=== PATIENT | female | born 1940 | race Caucasian/White ===

== ENCOUNTER 2021-03-14 09:57 | Outpatient (CLI) | payer MEDICARE | END 2021-03-14 09:58 | disposition home or self-care (01) | LOC: CSHULT 09:57 | PROVIDERS: ATTEND Internal Medicine | DX: R01.1 Cardiac murmur, unspecified (principal); I51.7 Cardiomegaly; I35.8 Other nonrheumatic aortic valve disorders; I35.2 Nonrheumatic aortic (valve) stenosis with insufficiency; I34.0 Nonrheumatic mitral (valve) insufficiency | CPT/HCPCS: 93306 ==

== ENCOUNTER 2021-04-27 14:09 | Outpatient (CLI) | payer MEDICARE | END 2021-04-27 14:10 | disposition home or self-care (01) | LOC: CSHMAMMO 14:09 | PROVIDERS: ATTEND Internal Medicine | DX: Z12.31 Encounter for screening mammogram for malignant neoplasm of breast (principal); Z98.890 Other specified postprocedural states; Z85.3 Personal history of malignant neoplasm of breast | CPT/HCPCS: 77063; 77067 ==